=== PATIENT | female | born 1995 | race Caucasian/White ===

== ENCOUNTER 2020-03-20 14:03 | Emergency (ER) | payer OTHER ==
[2020-03-20 14:09] VITALS: TEMP 98.2; BMI 24.0
[2020-03-20] MEDS ORDERED: SODIUM CHLORIDE 0.9% 500 ML INFUS.BAG IV ONE (15:01)
--- NOTE | 2020-03-20 15:41 | PDOC ---
History of Present Illness - General Chief Complaint: Nausea/Vomiting Stated Complaint: NAUSEA/VOMITING Time Seen by Provider: 03/20/20 14:36 History Source: Patient Exam Limitations: No Limitations - History of Present Illness Initial Comments: 03/20/20 15:38 24-year-old female G5, P4 20 weeks gestation LMP 10/14/19 presents complaining of 2 episodes of blood-tinged vomiting 6 days ago and one episode this morning which occurred after eating. Immediately after eating patient states she had abdominal cramping and had one episode of blood-tinged vomiting. Denies palpitations, dizziness, shortness of breath, chest pain, back pain, vaginal bleeding or discharge, fever, chills or urinary complaints. ROS: as above PE: GENERAL: well-appearing, NAD HEAD: NCAT EYES: Pupils equal, round and reactive to light, sclera anicteric, conjunctiva clear ENT: pharynx: no erythema, no exudate, uvula midline, small blood blister noted on the right side of the uvula, no active bleeding NECK: supple CHEST: nontender RESP: clear, no w/r/r CARDIO: rrr, no m/g/r ABD: +BS, soft, gravid abdomen BACK: no midline spinal ttp, no CVAT EXTREMITIES: Normal range of motion, no edema NEUROLOGICAL: Normal speech, normal gait SKIN: Warm, Dry 03/20/20 17:49 Is this a multiple visit Asthma Patient?: No Past History - Medical History Allergies/Adverse Reactions: Allergies Allergy/AdvReac Type Severity Reaction Status Date / Time No Known Allergies Allergy Verified 03/20/20 14:06 Home Medications: Ambulatory Orders Pnv No.121/Iron/Folic Acid [ Multivitamin Tablet] 1 each PO DAILY 03/20/20 - Reproductive History Is Patient Now?: No - Psycho-Social/Smoking History Smoking History: Never smoked Information on smoking cessation initiated: No - Substance Abuse Hx (Audit-C & DAST Scrn) How often the patient has a drink containing alcohol: Never Score: In Men: 4 or > Positive; In Women: 3 or > Positive: 0 Screen Result (Pos requires Nsg. Audit-10AR): Negative *Physical Exam - Vital Signs Last Vital Signs Temp Pulse Resp BP Pulse Ox 98.2 F 92 H 17 106/74 99 03/20/20 14:06 03/20/20 14:06 03/20/20 14:06 03/20/20 14:06 03/20/20 14:06 ED Treatment Course - LABORATORY CBC & Chemistry Diagram: 03/20/20 15:25 03/20/20 15:25 - Medications Given in the ED: ED Medications Discontinued Medications Generic Name Dose Route Start Last Admin Trade Name Aleksey PRN Reason Stop Dose Admin Sodium Chloride 1,000 ml 03/20/20 15:01 03/20/20 15:25 Normal Saline - IV 03/20/20 15:02 1,000 ml ONCE ONE Administration Medical Decision Making - Medical Decision Making 03/20/20 15:40 24-year-old female G5, P4 20 weeks gestation LMP 10/14/19 presents complaining of 2 episodes of blood-tinged vomiting 6 days ago and one episode this morning which occurred after eating. Immediately after eating patient states she had abdominal cramping and had one episode of blood-tinged vomiting. Denies palpitations, dizziness, shortness of breath, chest pain, back pain, vaginal bleeding or discharge, fever, chills or urinary complaints. Labs, UA, urine culture, IV fluids Reassess 03/20/20 16:52 Bedside ultrasound: positive IUP, movement and heart rate at 143 03/20/20 17:50 No vomiting, abdominal pain or nausea while in the ED Discussed lab results with patient Stable for discharge Patient will be transported to L&D for evaluation and monitoring Discharge - Discharge Information Problems reviewed: Yes Clinical Impression/Diagnosis: Vomiting Qualifiers: Vomiting type: unspecified Vomiting Intractability: unspecified Nausea presence: without nausea Qualified Code(s): R11.11 - Vomiting without nausea Condition: Stable Disposition: HOME - Admission No - Follow up/Referral - Patient Discharge Instructions Additional Instructions: Remain hydrated Take Zofran every 8 hours as needed for nausea Follow-up with your OB doctor within 1 week If abdominal pain, vaginal bleeding, vaginal discharge, back pain or any concerning symptom return to ED - Post Discharge Activity
[2020-03-20 15:42] LABS: BASO % 0.5 % (0-2.0); EOS % 0.7 % (0-4.5); HEMATOCRIT 39.3 % (32.4-45.2); HEMOGLOBIN 12.9 GM/dL (10.7-15.3); LYMPH % 13.9 % (8-40); MCH 32.3 pg (25.7-33.7); MCHC 32.8 g/dl (32.0-36.0); MEAN CELL VOLUME 98.4 fl (80-96); MEAN PLT VOLUME 10.4 fl (7.5-11.1); NEUT % 80.9 % (42.8-82.8); PLATELET COUNT 261 K/MM3 (134-434); RBC 3.99 M/mm3 (3.60-5.2); RDW 13.2 % (11.6-15.6); WHITE BLOOD COUNT 12.3 K/mm3 (4.0-10.0)
[2020-03-20 16:18] LABS: URINE APPEARANCE CLEAR; URINE BILIRUBIN NEGATIVE (NEGATIVE); URINE COLOR YELLOW; URINE GLUCOSE (UA) NEGATIVE (NEGATIVE); URINE KETONE 1+ (NEGATIVE); URINE LEUK ESTERASE NEGATIVE (NEGATIVE); URINE NITRITE NEGATIVE (NEGATIVE); URINE PROTEIN NEGATIVE (NEGATIVE); URINE UROBILINOGEN 0.2 mg/dL (0.2-1.0)
[2020-03-20 17:05] VITALS: BP 112/64; PULSE 88
[2020-03-20 17:33] LABS: ALBUMIN 3.3 g/dl (3.4-5.0); BILIRUBIN,TOTAL 0.2 mg/dL (0.2-1); BLOOD UREA NITROGEN 4.9 mg/dL (7-18); CALCIUM 8.9 mg/dL (8.5-10.1); CREATININE 0.4 mg/dL (0.55-1.3); POTASSIUM 4.1 mmol/L (3.5-5.1); TOT PROT 6.8 g/dl (6.4-8.2)
== END 2020-03-20 18:08 | disposition home or self-care (01) ==
LOC: JER 14:03
DX: R11.11 Vomiting without nausea (principal)
CPT/HCPCS: 36415; 76815; 80053; 81003; 83690; 85025; 87086; 99283-25

== ENCOUNTER 2020-07-23 07:00 | Inpatient (IN) | payer OTHER ==
[2020-07-23 07:58] VITALS: BMI 32.9
[2020-07-23 07:59] LABS: INR 0.97 (0.83-1.09); PROTHROMBIN TIME (PATIENT) 11.8 SEC (9.7-13.0)
[2020-07-23] MEDS ORDERED: CITRIC ACID/SODIUM CITRATE 30 ML UNIT-DOSE CUP PO ONE (08:01)
[2020-07-23] MEDS ORDERED: ELECTROLYTE-148 SOLN 500 ML IV ONE (08:01)
[2020-07-23] MEDS ORDERED: PHENYLEPHRINE HCL 10 MG/1 ML SINGLE DOSE VIAL ONE (08:01)
[2020-07-23 08:02] LABS: ACTIVATED PTT 27.2 SECONDS (25.2-36.5)
[2020-07-23] MEDS ORDERED: morphine SULFATE/PF 0.5 MG/ML (2cc Syringe - QUVA) ONE (08:02)
[2020-07-23] MEDS ORDERED: ePHEDrine SULFATE 50 MG/1 ML AMPULE ONE (08:09)
[2020-07-23] MEDS ORDERED: GLYCOPYRROLATE 0.2 MG/1 ML VIAL ONE (08:10)
[2020-07-23] MEDS ORDERED: ONDANSETRON 4 MG/2 ML VIAL ONE (08:10)
[2020-07-23] MEDS ORDERED: ELECTROLYTE-148 SOLN 1,000 ML IV SCH (08:15)
[2020-07-23] MEDS ORDERED: IBUPROFEN 800 MG/8 ML IJ IVPB PRN (08:44)
[2020-07-23] MEDS ORDERED: oxyCODONE HCL 5 MG TABLET PO PRN (08:44)
[2020-07-23] MEDS ORDERED: OXYTOCIN 20 UNITS in 0.9% NS 20 UNIT/1,000 ML INFUS.BAG IV SCH (08:45)
[2020-07-23] MEDS ORDERED: OXYTOCIN 10 UNITS/ML VIAL ONE ×4 (08:57→08:59)
[2020-07-23] MEDS ORDERED: ONDANSETRON 4 MG/2 ML VIAL IVPUSH PRN (10:03)
[2020-07-24 08:13] LABS: BASO % 0.6 % (0-2.0); HEMATOCRIT 33.8 % (32.4-45.2); MCH 31.9 pg (25.7-33.7); MCHC 32.5 g/dl (32.0-36.0); MEAN CELL VOLUME 98.1 fl (80-96); MEAN PLT VOLUME 9.8 fl (7.5-11.1); MONO % 9.3 % (3.8-10.2); NEUT % 79.1 % (42.8-82.8); PLATELET COUNT 387 K/MM3 (134-434); RBC 3.45 M/mm3 (3.60-5.2); RDW 12.9 % (11.6-15.6); WHITE BLOOD COUNT 16.7 K/mm3 (4.0-10.0)
[2020-07-24] MEDS ORDERED: BISACODYL 10 MG SUPP.RECT RC PRN (08:44)
[2020-07-24] MEDS: SIMETHICONE 80 MG TAB.CHEW (FP) PO PRN (17:42)
[2020-07-24] MEDS: IBUPROFEN 600 MG TABLET (FP) PO PRN (17:43)
[2020-07-25] MEDS: SIMETHICONE 80 MG TAB.CHEW (FP) PO PRN (03:22)
[2020-07-25] MEDS: IBUPROFEN 600 MG TABLET (FP) PO PRN (03:22)
[2020-07-25 08:58] VITALS: BP 121/77; PULSE 87; TEMP 98.3
== END 2020-07-25 12:50 | disposition home or self-care (01) | DRG 540 ==
LOC: JLDR 07:00 → J3W 11:45
PROVIDERS: ADMIT Student in an Organized Health Care Education/Training Program; ATTEND Student in an Organized Health Care Education/Training Program
PROC: 10D00Z1 Extraction of Products of Conception, Low, Open Approach (ICD-10-PCS; principal; 2020-07-23)
DX: O34.211 Maternal care for low transverse scar from previous cesarean delivery (principal); N85.8 Other specified noninflammatory disorders of uterus; Z3A.39 39 weeks gestation of pregnancy; Z37.0 Single live birth
CPT/HCPCS: 36415; 85025; 85610; 85730; 88307-TC; C9803; U0003